=== PATIENT | male | born 1995 ===

== ENCOUNTER 2021-11-24 22:23 | Emergency (ER) | payer OTHER ==
[~2021-11-24] VITALS: Ht 170.2 cm; Wt 61.7 kg
== END 2021-11-25 | disposition home or self-care (01) ==
LOC: ER 22:23
DX: S05.8X1A Other injuries of right eye and orbit, initial encounter (principal); X58.XXXA Exposure to other specified factors, initial encounter; Y93.67 Activity, basketball; Y92.89 Other specified places as the place of occurrence of the external cause